=== PATIENT | male | born 1960 | race Caucasian/White ===

== ENCOUNTER 2017-11-17 13:53 | Emergency (ER) | payer OTHER ==
[~2017-11-17] VITALS: Ht 170.2 cm; Wt 115.7 kg
[2017-11-17 14:04] VITALS: TEMP 36.6
[2017-11-17] MEDS ORDERED: SODIUM CHLORIDE 0.9% 1000ML 1,000 ML IV STA (14:14)
[2017-11-17] MEDS ORDERED: DILTIAZEM HCL 5 MG/ML 5 ML VIAL IV STA ×2 (14:14→15:27)
[2017-11-17] MEDS ORDERED: THIAMINE HCL 100 MG/ML 2 ML VIAL IV STA (14:15)
--- NOTE | 2017-11-17 14:21 | EMERGENCY ROOM VISIT NOTE ---
History Report prepared by Kerwin: Lili Walker Under the Supervision of: Dr. Emil Wellington D.O. First contact with patient: 14:12 Chief Complaint: RAPID HEART RATE Stated Complaint: ABNORMAL EKG IN PAT History of Present Illness The patient is a 57 year old male who presents to the Emergency Room with complaints of a persistent rapid heart rate which he is unsure when it began.The patient states that he does not have any chest pain, trouble breathing , nausea, or vomiting. He notes that he had an EKG for a pre-op, which is where he found that he was tachycardic. The patient denies seeing a film developer. He reports that he drinks alcohol everyday, but denies any tobacco use. Source of History: patient Onset: unsure Position: other (rapid heart rate) Quality: other (rapid heart rate) Timing: other (persistent) Associated Symptoms: No chest pain, No nausea, No vomiting Note: Patient denies any trouble breathing. Review of Systems See HPI for pertinent positives & negatives. A total of 10 systems reviewed and were otherwise negative. Past Medical & Surgical Social History Problems: (1) Alcohol abuse Family History Patient reports no known family medical history. No pertinent family history. Social History Smoking Status: Never Smoker Smokeless Tobacco Use: No Alcohol Use: heavy (everyday) Drug Use: none Housing Status: lives with family Occupation Status: employed Current/Historical Medications Scheduled Allopurinol (Zyloprim), 300 MG PO DAILY Diltiazem Hcl Ext Rel (Tiazac), 180 MG PO DAILY Lisinopril (Zestril), 2.5 MG PO DAILY Magnesium Oxide (Mag-Ox), 400 MG PO DAILY Metoprolol Succinate (Toprol Xl), 25 MG PO DAILY Allergies Coded Allergies: No Known Allergies (Unverified , 11/17/17) Physical Exam Vital Signs Date Time Temp Pulse Resp B/P (MAP) Pulse Ox O2 Delivery O2 Flow Rate FiO2 11/17/17 14:52 133 18 124/95 96 Nasal Cannula 11/17/17 14:27 97 Room Air 11/17/17 14:27 97 Room Air 11/17/17 14:19 153 11/17/17 14:04 36.6 160 18 131/93 96 Room Air Physical Exam GENERAL: Patient is awake, alert, and in no acute distress. Patient is resting comfortably and showing no signs of anxiety EYES: The conjunctivae are clear. The pupils are round and reactive. EARS, NOSE, MOUTH AND THROAT: The nose is without any evidence of any deformity. Mucous membranes are moist tongue is midline NECK: The neck is nontender and supple. RESPIRATORY: Normal respiratory effort is noted there is no evidence of wheezing rhonchi or rales CARDIOVASCULAR: Tachycardic rate and regular rhythm noted, there was no murmurs , rub,s or gallops normal S1 normal S2 GASTROINTESTINAL: The abdomen is soft. Bowel sounds are present in all quadrants. Abdomen is nontender MUSCULOSKELETAL/EXTREMITIES: There is no evidence of gross deformity full range of motion is noted in the hips and shoulders SKIN: There is no obvious evidence of any rash. There are no petechiae, pallor or cyanosis noted. NEUROLOGIC: Patient is awake alert and oriented x3 strength is symmetric patellar reflexes are 2+ bilaterally Medical Decision & Procedures ER Provider Diagnostic Interpretation: Radiology results as stated below per my review and radiologist interpretation: CHEST ONE VIEW PORTABLE HISTORY: 57 years-old Male EVALUATE RESPIRATORY DISTRESS.DYSPNEA acute respiratory distress COMPARISON: None available TECHNIQUE: Portable AP view of the chest FINDINGS: Cardiac silhouette is mildly enlarged. There is moderate hemidiaphragmatic elevation. No pneumothorax, pleural effusion, focal airspace consolidation or overt pulmonary edema. The bones of the chest appear grossly intact. IMPRESSION: Cardiomegaly and mild right hemidiaphragmatic elevation without acute process. The above report was generated using voice recognition software. It may contain grammatical, syntax or spelling errors. Electronically signed by: Jaime Eubanks M.D. 11/17/2017 2:31 PM Dictated Date/Time: 11/17/2017 2:30 PM Laboratory Results 11/17/17 14:10 Red Blood Count 5.17, Mean Corpuscular Volume 91.1, Mean Corpuscular Hemoglobin 31.7, Mean Corpuscular Hemoglobin Concent 34.8, Mean Platelet Volume 9.6, Neutrophils (%) (Auto) 72.2, Lymphocytes (%) (Auto) 16.8, Monocytes (%) (Auto) 8.9, Eosinophils (%) (Auto) 1.5, Basophils (%) (Auto) 0.5, Neutrophils # (Auto) 6.61, Lymphocytes # (Auto) 1.54, Monocytes # (Auto) 0.82, Eosinophils # (Auto) 0.14, Basophils # (Auto) 0.05 11/17/17 14:10 Test 11/17/17 14:10 White Blood Count 9.17 K/uL (4.8-10.8) Red Blood Count 5.17 M/uL (4.7-6.1) Hemoglobin 16.4 g/dL (14.0-18.0) Hematocrit 47.1 % (42-52) Mean Corpuscular Volume 91.1 fL (80-100) Mean Corpuscular Hemoglobin 31.7 pg (25-34) Mean Corpuscular Hemoglobin Concent 34.8 g/dl (32-36) Platelet Count 250 K/uL (130-400) Mean Platelet Volume 9.6 fL (7.4-10.4) Neutrophils (%) (Auto) 72.2 % Lymphocytes (%) (Auto) 16.8 % Monocytes (%) (Auto) 8.9 % Eosinophils (%) (Auto) 1.5 % Basophils (%) (Auto) 0.5 % Neutrophils # (Auto) 6.61 K/uL (1.4-6.5) Lymphocytes # (Auto) 1.54 K/uL (1.2-3.4) Monocytes # (Auto) 0.82 K/uL (0.11-0.59) Eosinophils # (Auto) 0.14 K/uL (0-0.5) Basophils # (Auto) 0.05 K/uL (0-0.2) RDW Standard Deviation 42.3 fL (36.4-46.3) RDW Coefficient of Variation 12.7 % (11.5-14.5) Immature Granulocyte % (Auto) 0.1 % Immature Granulocyte # (Auto) 0.01 K/uL (0.00-0.02) Prothrombin Time 11.8 SECONDS (9.0-12.0) Prothromb Time International Ratio 1.1 (0.9-1.1) Activated Partial Thromboplast Time 27.0 SECONDS (21.0-31.0) Partial Thromboplastin Ratio 1.0 Anion Gap 7.0 mmol/L (3-11) Est Creatinine Clear Calc Drug Dose 103.5 ml/min Estimated GFR () 100.2 Estimated GFR (Non- 86.4 BUN/Creatinine Ratio 7.1 (10-20) Calcium Level 8.8 mg/dl (8.5-10.1) Magnesium Level 1.8 mg/dl (1.8-2.4) Total Bilirubin 0.6 mg/dl (0.2-1) Aspartate Amino Transf (AST/SGOT) 19 U/L (15-37) Alanine Aminotransferase (ALT/SGPT) 37 U/L (12-78) Alkaline Phosphatase 69 U/L (45-117) Total Creatine Kinase 76 U/L (39-308) Creatine Kinase MB 1.0 ng/ml (0.5-3.6) Creatine Kinase MB Ratio 1.3 (0-3.0) Troponin I < 0.015 ng/ml (0-0.045) Total Protein 7.4 gm/dl (6.4-8.2) Albumin 3.8 gm/dl (3.4-5.0) Globulin 3.6 gm/dl (2.5-4.0) Albumin/Globulin Ratio 1.1 (0.9-2) Thyroid Stimulating Hormone (TSH) 3.090 uIu/ml (0.300-4.500) Free Thyroxine 1.24 ng/dl (0.80-1.60) Laboratory results per my review. Medications Administered Medications (Trade) Dose Ordered Sig/Linda Route Start Time Stop Time Status Last Admin Dose Admin Sodium Chloride 1,000 ml @ 999 mls/hr Q1H1M STAT IV 11/17/17 14:14 11/17/17 15:14 DC 11/17/17 14:26 999 MLS/HR Diltiazem HCl (Cardizem Inj) 10 mg NOW STAT IV 11/17/17 14:14 11/17/17 14:16 DC 11/17/17 14:23 10 MG Thiamine HCl (Vitamin B-1 Inj) 100 mg NOW STAT IV 11/17/17 14:15 11/17/17 14:16 DC 11/17/17 14:26 100 MG Diltiazem HCl (Cardizem Inj) 20 mg NOW STAT IV 11/17/17 15:27 11/17/17 15:28 DC 11/17/17 15:30 20 MG Metoprolol Succinate (Toprol Xl Tab) 25 mg NOW STAT PO 11/17/17 15:55 11/17/17 15:56 DC 11/17/17 16:14 25 MG ECG Indication: palpitations Rate (beats per minute): 101 Rhythm: atrial fibrillation Findings: other (no PVC's, poor R wave progression noted) Change: no significant change (from earlier trade done PAT) Change: The patient's electrocardiogram was interpreted by me. ED Course 1413: The patient was evaluated in room A12. A complete history and physical examination were performed. 1414: Cardizem Inj 10mg IV and Sodium Chloride 1000 ml @ 999 mls/hr IV. 1415: Ordered Thiamine HCL 100mg IV. 1527: Ordered Cardizem Inj 20mg IV. 1549:Ordered Toprol XI Tab 25mg PO. 1555: Ordered Toprol XI Tab 25mg PO. 1556: I reevaluated the patient, who states he does not want to stay as an inpatient. 1610: I discussed the patient's case with Dr. Núñez [facility] [place], [place]. He recommends the patient comes in for inpatient care but if patient does not want to stay then he can leave. 1705: Upon reevaluation, the patient is resting comfortably. I discussed the results and treatment plan with him. He verbalized agreement of the treatment plan. The patient was discharged home. Medical Decision Triage Nursing notes reviewed. The patient's history was concerning for palpitations. Differential diagnosis: Etiologies such as premature contractions, electrolyte abnormality, cardiac dysrhythmia, thyroid dysfunction, pulmonary embolism, infection, gastrointestinal, as well as others were entertained. The patient is a 57-year-old male who presented to the emergency department for evaluation of palpitations. The patient was sent from preadmission testing because of atrial fibrillation. The patient has a history of atrial fibrillation in the past. He has a history of significant alcohol use as well. He was treated with IV fluids as well as IV thiamine. He was also given IV Cardizem and Toprol-XL by mouth. I discussed the patient's laboratory and radiographic studies with him. I recommended that he stay for further inpatient management as well as possible echocardiogram and anticoagulation. The patient did not wish to stay in the hospital and does not wish to be started on anticoagulation. I discussed his case with the on-call [facility] [place] film developer. They also recommended the patient stay in the hospital for management but the patient does not wish to stay. I discussed possible complications of atrial fibrillation including stroke. He was started on a beta -paola and encouraged to continue all medications as prescribed. He was also encouraged to follow-up with the film developer for further evaluation but return to the emergency department immediately if symptoms change or worsen or the need arises. Medication Reconcilliation Current Medication List: was personally reviewed by me Blood Pressure Screening Patient's blood pressure: Normal blood pressure Consults Time Called: 1610 Consulting Physician: BONNIE Dukes. Returned Call: 1610 I discussed the patient's case with BONNIE Dukes. He recommends the patient comes in for inpatient care but if patient does not want to stay then he can leave. Impression Primary Impression: Atrial fibrillation with RVR Scribe Attestation The scribe's documentation has been prepared under my direction and personally reviewed by me in its entirety. I confirm that the note above accurately reflects all work, treatment, procedures, and medical decision making performed by me. Departure Information Dispostion Home / Self-Care Prescriptions Metoprolol Succinate (TOPROL XL) 25 Mg Tab 25 MG PO DAILY, #30 TAB Prov: Emil Wellington, DO 11/17/17 Referrals Nik Tierney M.D. (PCP) Forms HOME CARE DOCUMENTATION FORM, IMPORTANT VISIT INFORMATION, WORK / SCHOOL INSTRUCTIONS Patient Instructions [facility] Additional Instructions Call the film developer to schedule a follow-up appointment. Rest and avoid any strenuous activity. Drink plenty of clear liquids. Continue all medications as prescribed. Avoid any further alcoholic beverages. Return to the emergency department immediately if symptoms change worsening the need arises.
[2017-11-17 14:27] VITALS: O2SAT 97; Ht 170.2 cm; Wt 115.7 kg
--- NOTE | 2017-11-17 14:33 | DIAGNOSTIC IMAGING REPORT ---
CHEST ONE VIEW PORTABLE HISTORY: 57 years-old Male EVALUATE RESPIRATORY DISTRESS.DYSPNEA acute respiratory distress COMPARISON: None available TECHNIQUE: Portable AP view of the chest FINDINGS: Cardiac silhouette is mildly enlarged. There is moderate hemidiaphragmatic elevation. No pneumothorax, pleural effusion, focal airspace consolidation or overt pulmonary edema. The bones of the chest appear grossly intact. IMPRESSION: Cardiomegaly and mild right hemidiaphragmatic elevation without acute process. The above report was generated using voice recognition software. It may contain grammatical, syntax or spelling errors. Electronically signed by: Jaime Eubanks M.D. 11/17/2017 2:31 PM Dictated Date/Time: 11/17/2017 2:30 PM
[2017-11-17 14:34] LABS: BASO % 0.5 %; BASO ABS # 0.05 K/uL (0-0.2); EOS % 1.5 %; EOS ABS # 0.14 K/uL (0-0.5); HEMATOCRIT 47.1 % (42-52); HEMOGLOBIN 16.4 g/dL (14.0-18.0); IG# 0.01 K/uL (0.00-0.02); LYMPH % 16.8 %; LYMPH ABS # 1.54 K/uL (1.2-3.4); MEAN CELL VOLUME 91.1 fL (80-100); MEAN CORPUSCULAR HEMOGLOBIN 31.7 pg (25-34); MEAN CORPUSCULAR HGB CONC 34.8 g/dl (32-36); MEAN PLATELET VOLUME 9.6 fL (7.4-10.4); MONO % 8.9 %; MONO ABS # 0.82 K/uL (0.11-0.59); NEUT % 72.2 %; NEUT ABS # 6.61 K/uL (1.4-6.5); PLATELET COUNT 250 K/uL (130-400); RED CELL DISTRIBUTION WIDTH CV 12.7 % (11.5-14.5); RED CELL DISTRIBUTION WIDTH SD 42.3 fL (36.4-46.3); WHITE BLOOD COUNT 9.17 K/uL (4.8-10.8)
[2017-11-17 14:42] LABS: ALBUMIN 3.8 gm/dl (3.4-5.0); ALT/SGPT 37 U/L (12-78); AST/SGOT 19 U/L (15-37); BLOOD UREA NITROGEN 7 mg/dl (7-18); CALCIUM 8.8 mg/dl (8.5-10.1); CARBON DIOXIDE 28 mmol/L (21-32); CREATININE 0.98 mg/dl (0.60-1.40); GLUCOSE 99 mg/dl (70-99); INR 1.1 (0.9-1.1); POTASSIUM 3.7 mmol/L (3.5-5.1); SODIUM 135 mmol/L (136-145)
[2017-11-17] MEDS ORDERED: DILT-113 PO (14:46)
[2017-11-17] MEDS ORDERED: LISI-729 PO (14:46)
[2017-11-17] MEDS ORDERED: MAGN400T6 PO (14:46)
[2017-11-17] MEDS ORDERED: ALLO300T2 PO (14:46)
[2017-11-17 14:51] LABS: ALKALINE PHOSPHATASE 69 U/L (45-117); TOTAL PROTEIN 7.4 gm/dl (6.4-8.2)
[2017-11-17 14:52] VITALS: BP 124/95; PULSE 133; O2SAT 96
[2017-11-17] MEDS ORDERED: METOPROLOL SUCC 50MG EXT REL TAB PO STA (15:49)
[2017-11-17] MEDS ORDERED: METOPROLOL SUCC 25MG EXT REL TAB PO STA (15:55)
[2017-11-17] MEDS ORDERED: METO-478 PO (16:35)
== END 2017-11-17 17:16 | disposition home or self-care (01) ==
LOC: C.EDB 13:54 → C.EDA 17:16
DX: I48.0 Paroxysmal atrial fibrillation (principal); F10.10 Alcohol abuse, uncomplicated

== ENCOUNTER → 2017-12-11 | Day surgery (SDC) | payer OTHER ==
--- NOTE | 2017-11-23 15:17 | HISTORY & PHYSICAL EXAMINATION ---
DATE OF ADMISSION: 12/11/2017 CHIEF COMPLAINT: Right hip pain. HISTORY OF PRESENT ILLNESS: Ms. Stevenson is a 57-year-old male with an 8-month history of right hip pain. The patient rates his pain a 9/10. He has pain with his daily activities. He has limited standing and walking tolerance. Pain is worse with weightbearing. The patient has been ambulating with a cane. He has also been taking NSAIDs without relief. He has failed conservative treatment and is scheduled for right hip replacement. PAST MEDICAL HISTORY: Hypertension, hypercholesterolemia, and history of gout. He denies heart disease, diabetes or DVT. PAST SURGICAL HISTORY: Negative. SOCIAL HISTORY: The patient drinks 20 drinks per week. He denies tobacco use. He lives in a 2-garrett home. 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 FAMILY HISTORY: Negative for DVT. MEDICATIONS: Allopurinol 300 mg daily, lisinopril 5 mg daily, and diltiazem 180 daily. ALLERGIES: None. REVIEW OF SYSTEMS: See HPI. Ten other systems reviewed, all negative. PHYSICAL EXAMINATION: VITAL SIGNS: Height 5 feet 7, weight 257 pounds, BMI 40. GENERAL: This is a well-developed, well-nourished male who is alert and oriented x3. Mood and affect are appropriate. HEENT: Normocephalic, atraumatic. Mucous membranes are moist and intact. NECK: Supple without lymphadenopathy. HEART: Regular rate and rhythm without murmurs, rubs or gallops. LUNGS: Clear to auscultation without wheezes or rhonchi. ABDOMEN: Soft and nontender. Bowel sounds are equal and active. EXTREMITIES: No ecchymosis, redness or warmth. Thigh and calf are soft and nontender. Range of motion of the hip reproduces pain in the groin. Range of motion is decreased. He is neurovascularly intact with +5/5 strength. X-RAY EXAMINATION: AP and lateral views show joint space narrowing and osteophyte formation. IMPRESSION: Degenerative joint disease, right hip. PLAN: The patient will be admitted for a right total hip arthroplasty. We will plan on aspirin for DVT prophylaxis. The patient will likely use [facility] for home physical therapy.
[2017-12-01 11:53] VITALS: Ht 170.2 cm; Wt 116.4 kg
--- NOTE | 2017-12-01 12:33 | PAT Medication Instructions ---
Service Date Dec 01, 2017. Current Home Medication List Allopurinol (Zyloprim), 300 MG PO 3XWEEK Diltiazem Hcl Ext Rel (Tiazac), 180 MG PO QAM Lisinopril (Zestril), 2.5 MG PO QAM Magnesium Oxide (Mag-Ox), 400 MG PO QAM Metoprolol Succ (Toprol Xl) (Toprol-Xl ), 100 MG PO QAM Multivitamin (Multivitamin), 1 TAB PO QAM Rivaroxaban (Xarelto), 20 MG PO QAM Medication Instructions For Your Scheduled Surgery - Check with surgeon and logistician for instructions (patient advised to check with logistician if okay to hold 72 hours prior to surgery in order for spinal anesthesia) Rivaroxaban (Xarelto), 20 MG PO QAM - Hold the following medications the morning of surgery: Lisinopril (Zestril), 2.5 MG PO QAM Magnesium Oxide (Mag-Ox), 400 MG PO QAM Multivitamin (Multivitamin), 1 TAB PO QAM - Take the following medications the morning of surgery with a sip of water: Metoprolol Succ (Toprol Xl) (Toprol-Xl ), 100 MG PO QAM Diltiazem Hcl Ext Rel (Tiazac), 180 MG PO QAM Allopurinol (Zyloprim), 300 MG PO 3XWEEK If you have any questions please call us at [phone] or [phone] or [phone]
[2017-12-01 13:42] LABS: HEMOGLOBIN A1C 4.9 % (4.5-5.6)
[~2017-12-11] VITALS: Ht 170.2 cm; Wt 116.4 kg
[~2017-12-11] MED LIST: ACETAMINOPHEN 500 MG TAB PO SCH; ALLO300T2 PO; BUPIVACAINE 0.5 % 5 MG/1 ML PF 10ML VIAL ONE; CEFAZOLIN 2000MG IV PUSH 15 ML IV SCH; CeleBREX 200 MG CAP PO SCH; DEXAMETHASONE 4 MG TAB PO SCH; DILT-113 PO; FAMOTIDINE 20 MG TAB PO SCH; FENTANYL CITRATE INJ 50 MCG/1 ML 2 ML VIAL ONE; GABAPENTIN 600 MG PO SCH; LACTATED RINGER'S 1000ML 1,000 ML IV SCH; LACTATED RINGER'S 1000ML 500 ML IV SCH; LIDOCAINE HCL 2% 2 ML VIAL (20MG/ML) ONE; LISI-729 PO; MAGN400T6 PO; METO100T44 PO; METOCLOPRAMIDE HCL 10 MG TAB PO SCH; METOPROLOL TARTRATE 1 MG/ML VIAL IV STA; METOPROLOL TARTRATE 1 MG/ML VIAL ONE; MIDAZOLAM HCL 1 MG/ML 2ML VIAL ONE; MULT-506 PO; PROPOFOL IV EMULSION 10 MG/ML 20 ML VIAL IV ONE; RIVA1TAB4 PO; ROPIVACAINE 5MG/ML 30 ML 150 MG, BUPIVACAINE 0.5% MPF INJ 30 ML, EpINEphrine HCL INJ 0.... INFIL SCH; TRANEXAMIC ACID INJ 1,000 MG x 2 Bags IV SCH
--- NOTE | 2017-12-11 07:35 | History & Physical Bridge Note ---
H&P Re-Evaluation Bridge Note: I have examined the patient, reviewed the History & Physical and in the interval since the performance of the History & Physical I have noted the following changes of clinical significance: No changes noted
[2017-12-11 08:59] VITALS: BP 104/79; PULSE 115; O2SAT 96
--- NOTE | 2017-12-11 10:19 | CARDIOLOGY CONSULTATION REPORT ---
DATE OF CONSULTATION: 12/11/2017 HISTORY OF PRESENT ILLNESS: Mr. tSevenson is a very pleasant 57-year-old white male with a history of Hypertension, Dyslipidemia, Gout, Immoderate Alcohol Use (abstinent over the past 3-4 weeks), and Paroxysmal Atrial Fibrillation. He was initially diagnosis with atrial fibrillation about 2 years ago, and he was noted to be back in rapid atrial fibrillation on 11/17/2017 when he presented for his preadmission testing prior to having his left hip surgery. I have been following him frequently in the past 2 weeks in an effort to get his heart rate controlled. He is anticoagulated with Xarelto as well. I saw him on 12/08/2017 at which time he was still in atrial fibrillation, but his ventricular response rate was in the mid 90s. Additionally, his echocardiogram showed a mildly reduced LV systolic function with an LVEF of 45%. It was felt that he was an acceptable risk at that time. The patient presented today for his elective total hip arthroplasty, but his ventricular response rate is elevated (V rate between 120 and 140 beats per minute). Therefore, anesthesia consulted us for further recommendations as far as treating his atrial fibrillation. They have also cancelled surgery for today. The patient remains completely asymptomatic from his atrial fibrillation. He specifically denies any palpitations, tachypalpitations, shortness of breath, dyspnea on exertion or any chest discomfort. He is able to perform his ADLs without limiting cardiopulmonary symptoms. He has not had any signs or symptoms of stroke or mini stroke. The patient remains compliant with his medications and has not had any adverse side effects. MEDICATIONS: 1. Toprol-XL 100 mg b.i.d. 2. Diltiazem CD 180 mg daily. 3. Allopurinol 300 mg daily. 4. Xarelto 20 mg daily. 5. Lisinopril 2.5 mg daily. 6. Mag-Ox 400 mg daily. ALLERGIES: NKDA. PHYSICAL EXAMINATION: VITAL SIGNS: Apical rate is approximately 120-130 beats per minute and irregularly irregular, blood pressure is 101/60. GENERAL: The patient is in no acute distress. HEENT: Head is atraumatic and normocephalic. EOMs intact. Sclerae are anicteric. No perioral cyanosis. NECK: Without JVD. Carotid upstrokes are +2 bilaterally without bruits. CHEST AND LUNGS: Clear to auscultation throughout all lung hall. No wheezes, rales, or rhonchi. CARDIOVASCULAR: S1 and S2 are irregularly irregular and tachycardia. No murmurs, gallops, or rubs. PMI is nondisplaced. No lifts, heaves, or thrills. No abdominal aortic or renal bruits. ABDOMEN: Bowel sounds are present. No masses, organomegaly, or tenderness. EXTREMITIES: Without clubbing, cyanosis, or edema. Intact posterior tibial and radial pulses bilaterally. NEUROLOGIC: The patient is awake, alert and oriented. Pleasant and cooperative. Answers questions appropriately. Speech is clear. LABORATORY AND IMAGING DATA: Telemetry monitoring reveals rapid atrial fibrillation. No laboratories were drawn today, but recent laboratories done in the Emergency Room showed normal electrolytes including serum magnesium, serum potassium. He also has a normal blood count. ASSESSMENT: 1. Paroxysmal Atrial Fibrillation with rapid ventricular response. 2. Advanced Osteoarthritis of the hip, with anticipated upcoming elective total hip arthroplasty. 3. Hypertension, controlled. 4. Dyslipidemia. 5. History of gout. PLAN: 1. The patient was given 5 mg of IV Lopressor and his ventricular response rate came down between 100 and 115 beats per minute. The patient did not feel any differently after receiving IV Lopressor. 2. Surgery has been cancelled for today. We will continue working to get his ventricular response rate controlled until ultimately cardioverting if necessary in the next 3 weeks (after he has been on Xarelto). 3. The patient was advised to increase Toprol-XL to 150 mg b.i.d. 4. The patient was advised to increase Diltiazem CD to 240 mg daily. 5. We will plan on seeing the patient back in the near future for reevaluation of ventricular response rate and further management of his atrial dysrhythmia. The patient verbalized understanding of these instructions and will follow up with me on 11/20/2017 as an outpatient. 6. Resume Xarelto 20 mg daily. 7. We will continue to follow closely. MTDD
--- NOTE | 2017-12-11 12:32 | Anesthesiology Progress Note ---
Anesthesia Progress Note Date of Service Dec 11, 2017. Progress Notes The patient is a 57-y/o male with a history of hypertension, dyslipidemia, gout , immoderate alcohol use (abstinent over the past 3-4 weeks), and paroxysmal atrial fibrillation scheduled for total hip arthroplasty with Dr. Henry today. The patient was found to be in atrial fibrillation with RVR ( HRs 140- 150s) on arrival to [facility]. The patient was initially diagnosis with atrial fibrillation about 2 weeks ago when he was being seen in preoperative evaluation clinic. He was sent to the ED and cardiology was consulted. He was again seen by cardiology on Monday before surgery when he was noted to have improved rate control on metoprolol. He also had an echocardiogram done at that time. The patient was told that he was likely ok to proceed with surgery, but that he would be reevaluated on the morning of surgery. On arrival to [facility] this morning I was notified by the nurse that the patient was in atrial fibrillation with HR 140s-150s. His BP was stable with systolics in the low 100s and he was asymptomatic. Cardiology was consulted and Pascual Blair who had seen him in clinic on Monday came to evaluate him. Per Pascual Blair he will increase the patient's metoprolol and diltiazem and have him restart his Xarelto in preparation for likely cardioversion in the next several weeks. The patient was discharged home per Pascual Blair with cardiology follow up at the end of the week. The patient's hip surgery will be rescheduled when he is cleared by cardiology.
== END | disposition home or self-care (01) ==
LOC: C.ACU 06:56
DX: M16.11 Unilateral primary osteoarthritis, right hip (principal); I48.0 Paroxysmal atrial fibrillation; Z53.09 Procedure and treatment not carried out because of other contraindication; I10 Essential (primary) hypertension; E78.5 Hyperlipidemia, unspecified; M10.9 Gout, unspecified; E78.00 Pure hypercholesterolemia, unspecified; Z79.01 Long term (current) use of anticoagulants

== ENCOUNTER 2018-01-08 05:06 | Inpatient (IN) | payer OTHER ==
[2017-12-21 14:56] VITALS: BMI 39.0
--- NOTE | 2018-01-03 13:47 | HISTORY & PHYSICAL EXAMINATION ---
DATE OF ADMISSION: 01/08/2018 CHIEF COMPLAINT: Right hip pain. HISTORY OF PRESENT ILLNESS: The patient is a 57-year-old gentleman with known severe osteoarthritis about his right hip. He is unable to take any anti-inflammatory medications due to Xarelto use for atrial fibrillation. He has pain and disability with activities of daily living including any prolonged weightbearing and standing activities. He has difficulty kneeling, bending, or squatting activities. Due to ongoing pain and disability, he now desires to proceed with right total hip arthroplasty. PAST MEDICAL HISTORY: Atrial fibrillation, hypertension, hyperlipidemia, and gout. PAST SURGICAL HISTORY: None. MEDICATIONS: Toprol-XL 150 mg b.i.d., diltiazem CD 240 mg daily, Xarelto 20 mg daily, allopurinol 300 mg daily, lisinopril 2.5 mg daily, and Mag ox 400 mg daily. ALLERGIES: No known drug allergies. SOCIAL HISTORY: He states moderate weekly alcohol use. REVIEW OF SYSTEMS: Noncontributory. PHYSICAL EXAMINATION: GENERAL: Well-nourished and well-developed male who appears his stated age. HEENT: Normocephalic and atraumatic. Extraocular movements intact. Oropharynx is pink and moist. NECK: Supple without adenopathy. LUNGS: Clear to auscultation bilaterally. HEART: Regular rate and rhythm. ABDOMEN: Soft, nontender, nondistended, and obese. EXTREMITIES: The upper extremities are within normal limits. The right hip demonstrates limited range of motion. There is limitation of active and passive internal/external rotation with pain at end range. X-RAYS: X-rays were reviewed. He has severe osteoarthritis about the right hip with complete loss of the joint space. There is evidence of cystic changes about the femoral head. ASSESSMENT: Right hip degenerative joint disease. PLAN: Risks versus benefits were discussed. Consent was obtained. The patient's primary care physician is Dr. Tierney. We will proceed with right total hip arthroplasty as indicated.
[~2018-01-08] VITALS: Ht 170.2 cm; Wt 106.0 kg
[2018-01-08] VITALS (9 sets, daily range): BP systolic 87–143; BP diastolic 58–88; PULSE 63–93; TEMP 35.5–36.9; O2SAT 96–100; Ht 170.2 cm; Wt 106.0 kg
[~2018-01-08 05:06] MED LIST changes: -ACETAMINOPHEN 500 MG TAB PO SCH; -BUPIVACAINE 0.5 % 5 MG/1 ML PF 10ML VIAL ONE; -CEFAZOLIN 2000MG IV PUSH 15 ML IV SCH; -CeleBREX 200 MG CAP PO SCH; -DEXAMETHASONE 4 MG TAB PO SCH; -DILT-113 PO; +DILT-115 PO; -FAMOTIDINE 20 MG TAB PO SCH; -FENTANYL CITRATE INJ 50 MCG/1 ML 2 ML VIAL ONE; -GABAPENTIN 600 MG PO SCH; -LACTATED RINGER'S 1000ML 1,000 ML IV SCH; -LACTATED RINGER'S 1000ML 500 ML IV SCH; -LIDOCAINE HCL 2% 2 ML VIAL (20MG/ML) ONE; -METOCLOPRAMIDE HCL 10 MG TAB PO SCH; -METOPROLOL TARTRATE 1 MG/ML VIAL IV STA; -METOPROLOL TARTRATE 1 MG/ML VIAL ONE; -MIDAZOLAM HCL 1 MG/ML 2ML VIAL ONE; -PROPOFOL IV EMULSION 10 MG/ML 20 ML VIAL IV ONE; -ROPIVACAINE 5MG/ML 30 ML 150 MG, BUPIVACAINE 0.5% MPF INJ 30 ML, EpINEphrine HCL INJ 0.... INFIL SCH; -TRANEXAMIC ACID INJ 1,000 MG x 2 Bags IV SCH
[2018-01-08] MEDS: TRANEXAMIC ACID INJ 1,000 MG x 2 Bags IV SCH ×4 (06:00→06:30)
[2018-01-08] MEDS ORDERED: LACTATED RINGER'S 1000ML 500 ML IV SCH (06:00)
[2018-01-08] MEDS ORDERED: BUPIVACAINE 0.5 % 5 MG/1 ML PF 10ML VIAL ONE (06:35)
[2018-01-08] MEDS ORDERED: ORTHO JOINT ANESTHETIC ONE (06:47)
[2018-01-08] MEDS ORDERED: POVIDONE-IODINE OP SOLN 30 ML BTL ONE (06:48)
[2018-01-08] MEDS ORDERED: BACITRACIN 50000 UNIT VIAL ONE (06:48)
[2018-01-08] MEDS ORDERED: METOCLOPRAMIDE HCL 10 MG TAB PO ONE (06:59)
[2018-01-08] MEDS ORDERED: DEXAMETHASONE 4 MG TAB ONE (06:59)
[2018-01-08] MEDS ORDERED: ACETAMINOPHEN 500 MG TAB PO ONE (06:59)
[2018-01-08] MEDS ORDERED: GABAPENTIN 300 MG CAP PO ONE (06:59)
[2018-01-08] MEDS ORDERED: CeleBREX 200 MG CAP ONE (06:59)
[2018-01-08] MEDS ORDERED: FAMOTIDINE 20 MG TAB ONE (06:59)
[2018-01-08] MEDS ORDERED: CEFAZOLIN SOD 2000MG/15 ML IV PUSH IV ONE (06:59)
[2018-01-08] MEDS ORDERED: ATROPINE SULFATE 0.1 MG/ML 5ML SYR IV PRN (07:00)
[2018-01-08] MEDS ORDERED: ONDANSETRON INJ 2 MG/ML 2 ML VIAL IV PRN ×2 (07:00→09:30)
[2018-01-08] MEDS ORDERED: NURSING VERBAL MED ORDER ONE ×4 (07:00→21:30)
[2018-01-08] MEDS ORDERED: PHENYLEPHRINE 100MCG/ML 5ML SYR IV PRN (07:00)
[2018-01-08] MEDS ORDERED: HYDROmorphone INJ 2 MG/ML SYR/VIAL IV PRN (07:00)
[2018-01-08] MEDS ORDERED: EpHEDrine SULFATE INJ 50 MG/ML AMP IV PRN (07:00)
[2018-01-08] MEDS ORDERED: PHENYLEPHRINE 100MCG/ML 5ML SYR ONE ×2 (08:06→10:28)
[2018-01-08] MEDS ORDERED: PHENYLEPHRINE HCL INJ 10 MG/ML VIAL ONE ×2 (08:06→10:28)
[2018-01-08] MEDS ORDERED: ROPIVACAINE 5MG/ML 30 ML 150 MG, BUPIVACAINE 0.5% MPF INJ 30 ML, EpINEphrine HCL INJ 0.... INFIL SCH ×8 (08:45)
--- NOTE | 2018-01-08 08:45 | [facility] Post Operative Brief Note ---
Immediate Operative Summary Operative Date Jan 08, 2018. Pre-Operative Diagnosis Degenerative right hip disease Post-Operative Diagnosis Same Procedure(s) Performed Right Total Hip Arthroplasty Surgeon Dr Henry [employer] Consultant Surgeon(s) Ev Mccoy PA-C Estimated Blood Loss 150ml Findings Consistent with Post-Op Diagnosis Specimens A. Right femoral head Anesthesia Type MAC Spinal Regional Complication(s) none Disposition Accompanied Pt To Recover: no Disposition: Recovery Room / PACU
--- NOTE | 2018-01-08 09:15 | DIAGNOSTIC IMAGING REPORT ---
PELVIS 1 OR 2 VIEW ROUTINE CLINICAL HISTORY: Right hip arthroplasty. COMPARISON STUDY: None. FINDINGS: Single intraoperative image of the pelvis was submitted. No fracture or dislocation within the visualized pelvis or hips. Overlying sponge tape at the midline of the pelvis. Right acetabular cup is in good position. Femoral spacer is also good position. The entire right femur is not included on this study. No additional radiopaque foreign bodies identified. IMPRESSION: Intraoperative image of the pelvis for right total arthroplasty. The indwelling hardware appears intact. Of note, the entire right femoral spacer/femur is not included on this study. Electronically signed by: Seng Rivera M.D. 01/08/2018 9:14 AM Dictated Date/Time: 01/08/2018 9:12 AM
--- NOTE | 2018-01-08 09:22 | OPERATIVE REPORT ---
DATE OF OPERATION: 01/08/2018 PREOPERATIVE DIAGNOSIS: Osteoarthritis right hip. POSTOPERATIVE DIAGNOSIS: Osteoarthritis right hip. PROCEDURE: Right Merlin total hip arthroplasty. SURGEON: Gary Henry MD. TIP TESTER: CHAD Mchugh. ANESTHESIA: Spinal. COMPLICATIONS: None. IMPLANTS USED: Acetabular reamer used 54, acetabular stem 5, femoral head +2.5 with extended offset, femoral head. PROCEDURE: Following induction of adequate spinal anesthesia, the patient was placed in left lateral decubitus position and right Kayla-Langenbeck incision was made. Subcutaneous tissue was sharply dissected. Electrocautery used for hemostasis. The fascia was incised throughout the length of the wound and a cruz scissor placed beneath the short external rotators. The pyriformis was tagged with #1 Vicryl. The short external rotators were divided from the posterior aspect of the femur using electrocautery. These were swept posteriorly. A T-capsulotomy incision was made and the hip was dislocated using a combination of flexion, adduction, and internal rotation. Exposure of the femoral neck with old-style Hohmann and a blunt Hohmann was carried out and a femoral rasp was utilized as a guide for making the appropriate level femoral neck cut. This bone fragment was removed and reserved on the back table. Next, attention was turned to the acetabulum where bone hook was used to retract the femur while the offset retractors were placed anterior and posteriorly. A double-angled Hohmann was placed in superior and anterior position exposing the acetabulum nicely. Acetabular labrum as well as posterior capsule elements were removed using a long knife and a long pickup. Fovea centralis was cleared of all soft tissue. Sequential reamings were carried up to a 58 and decision was made to proceed with impaction of a 58 trabecular metal cup. This was impacted and held using a single 35 mm bone screw. The acetabular liner was placed with 15 of elevated posterior wall in the superior and posterior position. Next, attention was turned to the femoral portion of the case where a Bovie and pickup was used to further clear short external rotators from their insertion on the femur. Box osteotome was used to gain access to the femoral canal and the T-handled rasp and a rattail rasp were used to further open and lateral the canal. Sequentially raspings were carried up to a 5 which gave good fit and fill of the proximal femur. A trial reduction was carried out and a 132 degree femoral neck component was chosen as the size to be used. A +2.5 mm femoral head was impacted into position, +0 head was utilized. The trial reduction was stable in all degrees of rotation with no [id number] impingement. The hip was dislocated. The trial components were removed and the final femoral stem, neck, and femoral head combination were assembled on the back table and impacted into position. Hip was relocated. Range of motion checked once again successful and the wound was irrigated. The pyriformis repaired to the greater trochanter using #1 Vicryl [id number] suture. A Hemovac drain was placed and the fascia was closed using #1 Vicryl, subcutaneous tissue was closed using 0 Dexon, and skin was closed with braxton. Sterile dressing of Adaptic, 4 x 4's, ABDs, and foam tape was applied. The patient tolerated the procedure well. Due to the complex nature of the procedure, the entire surgery was performed with the operational assistance of CHAD Mchugh PA-C. The orthopedic assistant, under direct supervision, was involved in the actual performance of all aspects of the surgical procedure including hemostasis, tissue retraction and incision, instrument management, patient positioning, and wound closure. DISPOSITION: Recovery room stable. I attest to the content of the Intraoperative Record and any orders documented therein. Any exception s are noted below.
[2018-01-08] MEDS ORDERED: ALUMINUM/MAGNESIUM/SIMETH (MAALOX MAX) 30 ML UDC PO PRN (09:30)
[2018-01-08] MEDS ORDERED: DiphenhydrAMINE HCL 50 MG/ML VIAL IV PRN (09:30)
[2018-01-08] MEDS ORDERED: MoRPHine SULFATE 2 MG/ML CARP IV PRN (09:30)
[2018-01-08] MEDS ORDERED: BISACODYL 10 MG SUPP PR PRN (09:30)
[2018-01-08] MEDS ORDERED: ZOLPIDEM TARTRATE 5 MG TAB PO PRN (09:30)
[2018-01-08] MEDS ORDERED: MAGNESIUM HYDROXIDE SUSP 30 ML UDC PO PRN (09:30)
[2018-01-08] MEDS ORDERED: SOD PHOSPHATE/SOD BIPHOSPHATE ENEMA 132 ML BTL PR PRN (09:30)
--- NOTE | 2018-01-08 10:01 | DIAGNOSTIC IMAGING REPORT ---
R PELVIS/UNILATERAL HIP 1 VIEW CLINICAL HISTORY: 57 years-old Male presenting with IN PACU - A/P PELVIS and LATERAL HIP INCLUDING ALL OF IMPLANT. TECHNIQUE: Single frontal view the pelvis and crosstable lateral view of the right hip were obtained. COMPARISON: Plain radiograph of the pelvis performed earlier the same day. FINDINGS: There has been interval completion of the total right hip arthroplasty. No gross malalignment. The superior portion of the pelvis is excluded from the [id number] limiting evaluation of the superior acetabulum. Allowing for this, no hardware complication. No periprosthetic fracture. A surgical drain is in place. IMPRESSION: Expected postsurgical finding status post total right hip arthroplasty allowing for portable image quality. Electronically signed by: Emanuel Mendez M.D. 01/08/2018 10:00 AM Dictated Date/Time: 01/08/2018 9:58 AM
[2018-01-08] MEDS ORDERED: MIDAZOLAM HCL 1 MG/ML 2ML VIAL ONE (10:28)
[2018-01-08] MEDS ORDERED: ONDANSETRON INJ 2 MG/ML 2 ML VIAL ONE (10:28)
[2018-01-08] MEDS ORDERED: PROPOFOL IV EMULSION 10 MG/ML 20 ML VIAL IV ONE (10:28)
[2018-01-08] MEDS ORDERED: FENTANYL CITRATE INJ 50 MCG/1 ML 2 ML VIAL ONE (10:28)
[2018-01-08] MEDS ORDERED: DEXAMETHASONE SOD INJ 4 MG/ML VIAL ONE (10:28)
[2018-01-08] MEDS ORDERED: LIDOCAINE HCL 2% 2 ML VIAL (20MG/ML) ONE (10:28)
--- NOTE | 2018-01-08 10:43 | Anesthesiology Progress Note ---
Anesthesia Post Op Note Date & Time Jan 08, 2018 at 10:43 Vital Signs Pain Intensity: 0.0 Vital Signs Past 12 Hours Date Time Temp Pulse Resp B/P (MAP) Pulse Ox O2 Delivery O2 Flow Rate FiO2 01/08/18 10:37 98 Nasal Cannula 2.0 01/08/18 10:10 98 Nasal Cannula 2.0 01/08/18 10:10 36.4 70 16 103/68 (80) 98 Nasal Cannula 2.0 01/08/18 10:00 36.2 84 22 94/57 97 Nasal Cannula 2 01/08/18 09:50 75 14 98/49 98 Nasal Cannula 2 01/08/18 09:40 74 15 94/58 96 Nasal Cannula 2 01/08/18 09:30 72 15 98/62 97 Nasal Cannula 2 01/08/18 09:22 36.3 73 19 97/66 96 Nasal Cannula 2 01/08/18 05:34 36.9 93 20 143/88 96 Room Air Notes Mental Status: alert / awake / arousable, participated in evaluation Pt Amnestic to Procedure: Yes Nausea / Vomiting: adequately controlled Pain: adequately controlled Airway Patency, RR, SpO2: stable & adequate BP & HR: stable & adequate Hydration State: stable & adequate Neuraxial Anesthesia: was administered, sensory block is resolving Anesthetic Complications: no major complications apparent
[2018-01-08] MEDS ORDERED: KETOROLAC TROMETHAMINE 30 MG/ML VIAL IV. SCH (12:00)
[2018-01-08] MEDS: ACETAMINOPHEN 500 MG TAB PO SCH ×2 (14:10→20:40)
[2018-01-08] MEDS: CEFAZOLIN IV 2,000 MG in SYRINGE 0 ML IV SCH (15:29)
[2018-01-08] MEDS: SODIUM CHLORIDE 0.9% 1000ML 1,000 ML IV SCH (16:38)
[2018-01-08] MEDS: OXYCODONE HCL IR 5 MG TAB (IMMEDIATE RELEASE) PO PRN (20:36)
[2018-01-08] MEDS: SENNA 8.6 MG TAB PO SCH (20:39)
[2018-01-08] MEDS: METOPROLOL SUCC 50MG EXT REL TAB PO SCH (20:39)
[2018-01-09] MEDS: CEFAZOLIN IV 2,000 MG in SYRINGE 0 ML IV SCH (00:09)
[2018-01-09] MEDS: SODIUM CHLORIDE 0.9% 1000ML 1,000 ML IV SCH (01:58)
[2018-01-09 02:50] VITALS: BP 99/66; PULSE 84; TEMP 36.4; O2SAT 94
[2018-01-09] MEDS: OXYCODONE HCL IR 5 MG TAB (IMMEDIATE RELEASE) PO PRN ×2 (04:36→12:01)
[2018-01-09] MEDS: ACETAMINOPHEN 500 MG TAB PO SCH ×3 (05:32→21:54)
[2018-01-09 05:54] LABS: BASO % 0.1 %; BASO ABS # 0.01 K/uL (0-0.2); HEMATOCRIT 36.6 % (42-52); HEMOGLOBIN 12.6 g/dL (14.0-18.0); IG# 0.05 K/uL (0.00-0.02); LYMPH % 4.1 %; LYMPH ABS # 0.74 K/uL (1.2-3.4); MEAN CELL VOLUME 84.7 fL (80-100); MEAN CORPUSCULAR HEMOGLOBIN 29.2 pg (25-34); MEAN CORPUSCULAR HGB CONC 34.4 g/dl (32-36); MEAN PLATELET VOLUME 10.3 fL (7.4-10.4); MONO % 5.8 %; MONO ABS # 1.06 K/uL (0.11-0.59); NEUT % 89.7 %; NEUT ABS # 16.34 K/uL (1.4-6.5); PLATELET COUNT 224 K/uL (130-400)
[2018-01-09 06:32] LABS: CALCIUM 8.7 mg/dl (8.5-10.1); CREATININE 0.8 mg/dl (0.60-1.40); POTASSIUM 4.2 mmol/L (3.5-5.1)
[2018-01-09 06:35] VITALS: BP 108/66; PULSE 77; TEMP 36.4; O2SAT 96
[2018-01-09] MEDS ORDERED: DEXAMETHASONE 4 MG TAB PO SCH (07:30)
--- NOTE | 2018-01-09 07:53 | Orthopedic Progress Note ---
Orthopedic Progress Note Date of Service Jan 09, 2018. Subjective Post OP Day: 1 Reports: feeling well, Denies: chest pain, SOB, nausea / vomiting, light headedness, calf pain Objective calves soft nontender, N/V intact (WEAK DORSIFLEXION), hip located, dressing C/D /I, A&O x3, toes mobile, hemovac drainage (180/130cc per shift) Date Time Temp Pulse Resp B/P (MAP) Pulse Ox O2 Delivery O2 Flow Rate FiO2 01/09/18 06:35 36.4 77 18 108/66 (80) 96 Room Air 01/09/18 02:50 36.4 84 18 99/66 (77) 94 Room Air 01/09/18 00:15 Room Air 01/08/18 22:46 36.7 88 18 111/69 (83) 97 Room Air 01/08/18 19:50 36.7 85 20 117/77 (90) 98 Room Air 01/08/18 15:20 Room Air 01/08/18 14:58 35.5 72 18 102/68 (79) 97 Room Air 01/08/18 13:09 36.3 75 17 93/59 (70) 97 01/08/18 12:12 36.3 63 17 110/73 (85) 100 Nasal Cannula 2.0 01/08/18 11:12 68 17 89/58 (68) 100 Nasal Cannula 2.0 01/08/18 10:43 36.3 71 17 87/61 (70) 100 Nasal Cannula 2.0 01/08/18 10:37 98 Nasal Cannula 2.0 01/08/18 10:10 98 Nasal Cannula 2.0 01/08/18 10:10 36.4 70 16 103/68 (80) 98 Nasal Cannula 2.0 01/08/18 10:00 36.2 84 22 94/57 97 Nasal Cannula 2 01/08/18 09:50 75 14 98/49 98 Nasal Cannula 2 01/08/18 09:40 74 15 94/58 96 Nasal Cannula 2 01/08/18 09:30 72 15 98/62 97 Nasal Cannula 2 01/08/18 09:22 36.3 73 19 97/66 96 Nasal Cannula 2 Laboratory Results 24 Hours: Test 01/09/18 05:08 White Blood Count 18.20 K/uL Red Blood Count 4.32 M/uL Hemoglobin 12.6 g/dL Hematocrit 36.6 % Mean Corpuscular Volume 84.7 fL Mean Corpuscular Hemoglobin 29.2 pg Mean Corpuscular Hemoglobin Concent 34.4 g/dl Platelet Count 224 K/uL Mean Platelet Volume 10.3 fL Neutrophils (%) (Auto) 89.7 % Lymphocytes (%) (Auto) 4.1 % Monocytes (%) (Auto) 5.8 % Eosinophils (%) (Auto) 0.0 % Basophils (%) (Auto) 0.1 % Neutrophils # (Auto) 16.34 K/uL Lymphocytes # (Auto) 0.74 K/uL Monocytes # (Auto) 1.06 K/uL Eosinophils # (Auto) 0.00 K/uL Basophils # (Auto) 0.01 K/uL Assessment & Plan Assessment: POD#1 SP RIGHT JINA Plan: PT/OT DVT PROPH- RESUME XARELTO 20MG PAIN MANAGEMENT DC PLANNING- HOME WITH HOME PT TOMORROW. DC DRESSING/DRAIN IN AM.
[2018-01-09] MEDS: MAGNESIUM OXIDE 400 MG TAB PO SCH (08:24)
[2018-01-09] MEDS: MULTIVITAMIN TAB PO SCH (08:24)
[2018-01-09] MEDS: DILTIAZEM HCL 120 MG EXT REL CAP PO SCH (08:24)
[2018-01-09] MEDS: METOPROLOL SUCC 50MG EXT REL TAB PO SCH ×2 (08:25→21:54)
[2018-01-09] MEDS: LISINOPRIL 5 MG TAB PO SCH (08:26)
[2018-01-09] MEDS ORDERED: ALLOPURINOL 300 MG TAB PO SCH (09:00)
[2018-01-09 11:55] VITALS: BP 121/72; PULSE 81; TEMP 36.8; O2SAT 94
[2018-01-09 15:09] VITALS: BP 109/71; PULSE 73; TEMP 36.6; O2SAT 99
[2018-01-09] MEDS ORDERED: RIVAROXABAN 10 MG TAB PO SCH (17:45)
[2018-01-09 21:50] VITALS: BP 110/73; PULSE 85
[2018-01-09] MEDS: CeleBREX 200 MG CAP PO SCH (21:53)
[2018-01-09] MEDS: SENNA 8.6 MG TAB PO SCH (21:54)
[2018-01-09 22:55] VITALS: BP 126/76; PULSE 70; TEMP 36.4; O2SAT 99
[2018-01-10] MEDS: ACETAMINOPHEN 500 MG TAB PO SCH ×2 (05:28→13:28)
[2018-01-10 06:22] VITALS: BP 132/76; PULSE 77; TEMP 36.4; O2SAT 100
--- NOTE | 2018-01-10 07:51 | Orthopedic Progress Note ---
Orthopedic Progress Note Date of Service Jan 10, 2018. Subjective Post OP Day: 2 Reports: feeling well, Denies: complaints Objective calves soft nontender, N/V intact, hip located, incision C/D/I, A&O x3, toes mobile Date Time Temp Pulse Resp B/P (MAP) Pulse Ox O2 Delivery O2 Flow Rate FiO2 01/10/18 07:37 Room Air 01/10/18 06:22 36.4 77 18 132/76 (94) 100 Room Air 01/10/18 00:10 Room Air 01/09/18 22:55 36.4 70 18 126/76 (93) 99 Room Air 01/09/18 21:50 85 110/73 (85) 01/09/18 19:30 Room Air 01/09/18 15:09 36.6 73 20 109/71 (84) 99 Room Air 01/09/18 11:55 36.8 81 20 121/72 (88) 94 Room Air 01/09/18 08:14 Room Air Assessment & Plan Assessment: POD#2 SP RIGHT JINA Plan: PT/OT DVT PROPH- XARELTO 20MG PAIN MANAGEMENT DC PLANNING- HOME WITH HOME PT TODAY Inhouse Planning Pain Management: Celebrex, Morphine, PO Tylenol, Oxy IR DVT Prophylaxis: TEDs, SCDs, Xarelto Discharge Planning Discharge Planning: home with home health
[2018-01-10] MEDS ORDERED: ACET-24 PO (07:52)
[2018-01-10] MEDS ORDERED: SENN-61 PO (07:52)
[2018-01-10] MEDS ORDERED: RXC5 PO ×3 (07:52→08:14)
[2018-01-10] MEDS ORDERED: CLB200 PO (07:52)
--- NOTE | 2018-01-10 07:59 | Discharge Instructions ---
Discharge Instructions Date of Service Jan 10, 2018. Admission Reason for Admission: Right Hip Osteoarthritis Discharge Discharge Diagnosis / Problem: Right Hip Osteoarthritis Discharge Goals Goal(s): Decrease discomfort, Improve function, Increase independence Activity Recommendations Activity Limitations: per Instructions/Follow-up section Weightbearing Status: Right weightbearing (as tolerated) . Instructions / Follow-Up Instructions / Follow-Up ACTIVITY RECOMMENDATIONS: SELF CARE INSTRUCTIONS AFTER TOTAL HIP REPLACEMENT Until the incision and soft tissues around your hip have healed, there is a possibility that the hip prosthesis could dislocate. A. Observe the following precautions to prevent dislocation: 1. Don't bend your hip greater than 90 degrees. 2. Avoid crossing your legs or ankles while standing or lying. 3. Sit with your feet placed 6 inches apart. 4. When sitting, keep your knees below your hips. Sit on a firm surface, avoid deep, soft chairs and couches. Use an elevated toilet seat in the bathroom. 5. Don't bend over at the waist. Use a long handled shoehorn and a sock aid to help you put on your shoes and socks. A commutator assembler can help you supervisor picking crew objects that are too high or too low to reach. 6. Keep car riding to a minimum for at least one month after surgery. B. Your balance may be shaky for a while. Use crutches or a walker until directed by your doctor. C. Use hand rails when walking on stairs. D. Wear low heeled shoes with non-slip soles. E. Be sure that your floors are free of things that could trip you - throw rugs , electrical cords, small objects. Avoid wet and waxed floors, especially with crutches and canes. F. Try to walk several times a day with rest periods between. G. Continue with all the exercises taught to you in the hospital. Again, make walking a part of your daily routine. SPECIAL CARE INSTRUCTIONS: VERY IMPORTANT TO READ AND REVIEW A. You may still be at risk for phlebitis and blood clots. 1. Wear surgical stockings (POLLO hose) for 2 weeks after surgery to improve circulation and reduce swelling. 2. Take Aspirin 81mg twice daily for 4 weeks or as directed by your doctor. This is your blood thinner. 3. High risk patients may be prescribed a stronger blood thinner if necessary. 4. If you are on Coumadin normally, your family doctor/tire recapper should monitor your blood work. Expect a phone call the day of or the day after bloodwork is drawn to adjust your dosage. B. You must take antibiotics before having dental work, bladder, bowel and other surgery. Your doctor will provide you with a permanent card to carry describing precautions. C. Call [facility] if you have a fever, redness or swelling around the incision, cloudy drainage from incision, or sudden increase in pain in your hip, not relieved by your regular pain medication. D. Please call the office at if you have any concerns or questions about your operation or recovery. * YOU MAY SHOWER, NO TUB BATHS UNTIL CLEARED BY YOUR DOCTOR. * WEAR POLLO HOSE 20 HOURS PER DAY FOR 2 WEEKS. * YOU SHOULD USE A WALKER OR CRUTCHES FOR 2-4 WEEKS. THIS WILL HELP PREVENT STRAIN ON YOUR HIP MUSCLE AND ALLOW IT TO HEAL PROPERLY. YOU MAY WEAN TO A CANE TOLERATED. * MOST PATIENTS WILL HAVE HOME NURSING FOR THERAPY. IF YOU DECIDE TO DO OUTPATIENT PHYSICAL THERAPY, PLEASE SCHEDULE THIS 3 TIMES PER WEEK. * Zip Skin Closure You have a Zipline Closure System. As noted below, this keeps your incision closed. Change the dressing daily. Keep the wound covered with a dressing as it has the potential to snag on your clothing. The Zipline will remain on for a total of 2 weeks. Do not remove it! You may shower with this. Do not soak it. No tub baths. You will be given instructions by nursing staff at the time of discharge to care for your Zip Closure System. This devices uses plastic straps to keep your incision closed and protected throughout your recovery. If you have any questions please refer to these instructions first. [phone]. FOLLOW UP VISIT: If appointment is not already scheduled: Please call [facility] to make a follow-up appointment for 2 weeks after your surgery at . Current Hospital Diet Patient's current hospital diet: Regular Diet Discharge Diet Recommended Diet: Regular Diet Procedures Procedures Performed: Right Total Hip Arthroplasty Pending Studies Studies pending at discharge: no Laboratory Results Hemoglobin A1c Test 12/01/17 12:40 Range/Units Estimated Average Glucose 94 mg/dl Hemoglobin A1c 4.9 4.5-5.6 % Medical Emergencies . Who to Call and When: Medical Emergencies: If at any time you feel your situation is an emergency, please call 911 immediately. . Non-Emergent Contact Non-Emergency issues call your: Surgeon Call Non-Emergent contact if: temperature is above 101.5, your pain is not controlled, your pain is worsening, wound has increased drainage, wound has increased redness . "Provider Documentation" section prepared by Ramesh Figueroa. . [place] Drug Monitoring Program Search Results: patient reviewed within database, no issues identified
[2018-01-10 08:02] VITALS: BP 138/84; PULSE 98; TEMP 36.3; O2SAT 94
[2018-01-10 08:05] VITALS: O2SAT 94
[2018-01-10] MEDS: DILTIAZEM HCL 120 MG EXT REL CAP PO SCH (08:43)
[2018-01-10] MEDS: MULTIVITAMIN TAB PO SCH (08:43)
[2018-01-10] MEDS: MAGNESIUM OXIDE 400 MG TAB PO SCH (08:43)
[2018-01-10] MEDS: CeleBREX 200 MG CAP PO SCH (08:43)
[2018-01-10] MEDS: LISINOPRIL 5 MG TAB PO SCH (08:44)
[2018-01-10] MEDS: METOPROLOL SUCC 50MG EXT REL TAB PO SCH (08:44)
[2018-01-10 09:09] VITALS: BP 138/84; PULSE 98; TEMP 36.3; O2SAT 94
== END 2018-01-10 15:30 | disposition home health service (06) | DRG 470 ==
LOC: C.ACU 05:06 → C.3E 06:45 → UNDOADMIN 09:33 → C.3E 09:33 → ENRESERV 09:43
PROC: 0SR90JZ Replacement of Right Hip Joint with Synthetic Substitute, Open Approach (ICD-10-PCS; principal; 2018-01-08 07:00)
DX: M16.11 Unilateral primary osteoarthritis, right hip (principal); M21.371 Foot drop, right foot; I48.91 Unspecified atrial fibrillation; I10 Essential (primary) hypertension; M10.9 Gout, unspecified; E66.9 Obesity, unspecified; Z68.36 Body mass index [BMI] 36.0-36.9, adult; Z72.89 Other problems related to lifestyle; Z79.01 Long term (current) use of anticoagulants; Z79.899 Other long term (current) drug therapy; Z88.6 Allergy status to analgesic agent; Z87.891 Personal history of nicotine dependence